=== PATIENT | male | born 1975 | race Caucasian/White ===

== ENCOUNTER 2021-04-30 13:09 | Emergency (ER) | payer SELFPAY ==
[~2021-04-30] VITALS: Ht 177.8 cm; Wt 83.9 kg
[2021-04-30] MEDS ORDERED: SODIUM CHLORIDE 0.9% 1000ML 1,000 ML IV STA (13:24)
[2021-04-30 13:43] LABS: BASOPHILS # (AUTO) 0.2 (0.0-0.1); BASOPHILS % 1.6 % (0.0-1.0); EOSINOPHILS # (AUTO) 0.2 (0.0-0.4); EOSINOPHILS % 1.6 % (0.0-6.0); HEMATOCRIT 50.5 % (38.2-49.6); HEMOGLOBIN 17.6 g/dL (14.0-18.0); LYMPHOCYTES # (AUTO) 1.7 (1.0-3.2); MEAN CORPUSCULAR HGB CONC 34.9 g/dL (31-35); MEAN CORPUSCULAR VOLUME 100.4 fL (81-99); MONOCYTES # (AUTO) 0.7 (0.2-0.8); MONOCYTES % 7.3 % (4.4-11.3); NEUTROPHILS # (AUTO) 6.8 (2.1-6.9); NEUTROPHILS % 71.2 % (38.7-80.0); PLATELET COUNT 271 x10e3/uL (140-360); RED BLOOD COUNT 5.03 x10e6/uL (4.3-5.7); RED CELL DISTRIBUTION WIDTH 12.1 % (11.7-14.4)
[2021-04-30 14:04] LABS: ALBUMIN 4.1 g/dL (3.5-5.0); ALBUMIN/GLOBULIN RATIO 1.1 (0.8-2.0); CALCIUM 9.8 mg/dL (8.4-10.2); CREATININE, SERUM 1.05 mg/dL (0.72-1.25)
[2021-04-30] MEDS ORDERED: LIDOCAINE HCL 2% LOCAL 20 ML VIAL ONE (15:00)
[2021-04-30 16:05] VITALS: BP 123/64
== END 2021-04-30 16:07 | disposition home or self-care (01) ==
LOC: ER 13:50
DX: L03.113 Cellulitis of right upper limb (principal); M70.31 Other bursitis of elbow, right elbow; F17.210 Nicotine dependence, cigarettes, uncomplicated
CPT/HCPCS: 36415; 73080; 80053; 83605; 85025; 87040; 99284; J2001; J7030